=== PATIENT | male | born 1990 | race Caucasian/White ===

== ENCOUNTER 2019-08-07 02:47 | Observation (INO) | payer OTHER ==
[~2019-08-07] VITALS: Ht 177.8 cm; Wt 102.8 kg
[2019-08-07] VITALS (15 sets, daily range): BP systolic 100–135; BP diastolic 52–80; PULSE 57–101; TEMP 97.6–99.2
[2019-08-07] MEDS ORDERED: MOTRIN 800800 MG/TAB PO (04:00)
[2019-08-07] MEDS ORDERED: PRILOTC PO (04:04)
--- NOTE | 2019-08-07 04:28 | NUR ---
PT ARRIVED TO FLOOR FROM [facility] EM[facility]GENCY DEPT AT 0400. PT ARRIVED WITH [facility]IA [facility]. CURRENTLY PT IS RUNNING PANTOPRAZOLE 8ML/HR WITH 80ML LEFT IN A 100ML BAG. PT IS C/O PAIN IN THE UPPER ABDOMINAL REGION WITH BURNING IN THE ESOPHAGUS. PT STATES HE HAS COFFEE GROUND EMESIS AND BLOOD IN THE STOOL. UPON REPORT FROM [facility], PT HAD POSITIVE STOOL OCCULT. NO VOMITTING SINCE ARRIVAL TO THE HOSPITAL. PT TALKING AND EXPRESSIVE. PT STATES HE IS ANXIOUS REGARDING PROCEDURE. DR. ONEIL WILL BE PERFORMING EGD LATER THIS MORNING. PT ORIENTED TO THE ROOM, CALL LIGHT AND PERSONAL BELONGINGS WITHIN REACH. NO FURTHER CONCERNS AT THIS MOMENT.
[2019-08-07 07:08] LABS: BASO % 0.3 % (0.0-2.0); EOS # 0.1 (0.0-0.7); GRAN # 5.9 (1.4-6.5); GRAN % 77.2 % (42.2-75.2); HEMOGLOBIN 14.5 g/dl (13.5-18.0); LYMPH # 0.9 (1.2-3.4); LYMPH % 11.8 % (20.0-51.0); MEAN CELL VOLUME 85 fl (80.0-100.0); MEAN CORPUSCULAR HEMOGLOBIN 29 pg (27.0-31.0); MEAN CORPUSCULAR HGB CONC 34 g/dl (33.0-37.0); MEAN PLATELET VOLUME 11.4 fl (7.4-10.4); MONO # 0.7 (0.1-0.6); MONO % 8.9 % (1.7-9.3); PLATELET COUNT 185 K/mm3 (130-400); RED BLOOD COUNT 5.05 M/mm3 (4.20-5.60); REDCELL DISTRIBUTION WIDTH-CV 12.7 % (11.5-14.5)
--- NOTE | 2019-08-07 07:37 | NUR ---
Report given to MELANY Addison. No further concerns at this time.
--- NOTE | 2019-08-07 11:50 | NUR ---
Plan: Patient plans to return home with Keshia as care support. Assess: SW met with patient about DC plan. Patient reports that he resides on [address] [place]. Patient's pcp is Capt. Chavarria. Patient indicated that he obtains RX at [facility]. Patient denies DPOA. is set to transport. Patient denies the use of any DME. Patient denies having any care concerns. Action: It is unknown if additonal issues may arise, will follow up on additional services. Patient denies having any needs at this time. Educated on community supports.
[2019-08-07 18:04] LABS: HEMATOCRIT 40.3 % (42.0-52.0); HEMOGLOBIN 13.2 g/dl (13.5-18.0)
--- NOTE | 2019-08-07 19:00 | NUR ---
THIS NURSE TALKED TO PT TO SEE HOW HE FELT ABOUT GOING HOME THIS EVENING. STATED HE STILL FELT SICK AND HAD MORE ABD PAIN. GAVE ZOFRAN AND MORPHINE AT THIS TIME. STATED HE THOUGHT SINCE HE STILL FELT SICK THAT BE BETTER JUST STAY THE NIGHT TO GET TO FEELING BETTER BEFORE GOING HOME.
--- NOTE | 2019-08-07 20:00 | NUR ---
Pt is in bed. Has complaint of headache accompanied by N/V. Administered pain medication as well as an antiemetic. Pt should d/c from hospital 08/08. and children are now suffering from same virus at home.
[2019-08-08] VITALS: BP 100/58; PULSE 60; TEMP 97.9
[2019-08-08 03:02] VITALS: BP 100/58; PULSE 62; TEMP 97.9
--- NOTE | 2019-08-08 05:53 | NUR ---
PT SLEPT THROUGH THE NIGHT WITHOUT EMESIS. NAUSEA WAS HANDLED WITH A 1X IV DOSE OF PHENERGEN. PT FELT BETTER AND WAS ABLE TO GET REST. CALL LIGHT WITHIN REACH, BED IN LOCKED AND LOW POSITION. PLAN FOR PT IS TO BE D/C'D TODAY.
[2019-08-08 06:17] LABS: BASO % 0.2 % (0.0-2.0); EOS # 0.1 (0.0-0.7); GRAN # 2.7 (1.4-6.5); GRAN % 56.3 % (42.2-75.2); HEMATOCRIT 38.8 % (42.0-52.0); HEMOGLOBIN 12.8 g/dl (13.5-18.0); LYMPH # 1.3 (1.2-3.4); LYMPH % 28.1 % (20.0-51.0); MEAN CELL VOLUME 87 fl (80.0-100.0); MEAN CORPUSCULAR HEMOGLOBIN 29 pg (27.0-31.0); MEAN CORPUSCULAR HGB CONC 33 g/dl (33.0-37.0); MEAN PLATELET VOLUME 10.6 fl (7.4-10.4); MONO # 0.6 (0.1-0.6); MONO % 11.8 % (1.7-9.3); PLATELET COUNT 178 K/mm3 (130-400); RED BLOOD COUNT 4.48 M/mm3 (4.20-5.60); REDCELL DISTRIBUTION WIDTH-CV 12.7 % (11.5-14.5)
[2019-08-08 06:34] LABS: CALCIUM 8.6 mg/dL (8.4-10.2); CREATININE, serum 0.85 (0.66-1.25)
[2019-08-08 08:18] VITALS: BP 113/56; PULSE 65; TEMP 97.9
[2019-08-08] MEDS ORDERED: PROTONIX 40MG T40 MG PO (09:31)
--- NOTE | 2019-08-08 11:00 | NUR ---
PT WAS ABLE TO TOLLERATE BREAKFAST. DID HAVE C/O OF A PRESSURE PAIN AFTERWARDS. GAVE TYLENOL. NO FURTHER COMPLAINTS. WILL SEE HOW HE DOES A LUNCH
[2019-08-08 11:46] VITALS: BP 130/57; PULSE 69; TEMP 97.5
--- NOTE | 2019-08-08 14:00 | NUR ---
THIS NURSE ASKED PT HOW HE TOLERATED LUNCH. PT STATED NO ISSUES. FELT IF THOUGH HE WAS OK TO GO HOME. NO ISSUE NOTED.
--- NOTE | 2019-08-08 14:03 | NUR ---
First visit from the commercial leasing agent. No needs right now.
--- NOTE | 2019-08-08 14:03 | NUR ---
DC IV on left AC. IV cath intact. MELANY Addison by bedside and Radha, student nurse. Patient tolerated removal without pain.
--- NOTE | 2019-08-08 15:00 | NUR ---
DISCHARGE EDUCATION PROVIDED TO PT. NO FURTHER C/O ABD PAIN. ALL QUESITIONS ANSWERED. THIS NURSE WALKED PT KAY.
== END 2019-08-08 15:00 | disposition home or self-care (01) ==
LOC: MEDICAL 02:47
PROVIDERS: ADMIT Hospitalist
DX: K21.0 Gastro-esophageal reflux disease with esophagitis (principal); K92.1 Melena; R19.7 Diarrhea, unspecified; M19.071 Primary osteoarthritis, right ankle and foot; K44.9 Diaphragmatic hernia without obstruction or gangrene; K29.60 Other gastritis without bleeding
CPT/HCPCS: C9113; G0378; J2250; J2270; J2405; J2550; J3010; J7030

== ENCOUNTER 2019-10-24 07:15 | Day surgery (SDC) | payer OTHER ==
[~2019-10-24] VITALS: Ht 177.8 cm; Wt 103.0 kg
[2019-10-24] VITALS (7 sets, daily range): BP systolic 101–121; BP diastolic 68–75; PULSE 58–73; TEMP 97.5
[~2019-10-24 07:15] MED LIST: MOTRIN 800800 MG/TAB PO; PRILOTC PO; PROTONIX 40MG T40 MG PO
[2019-10-24] MEDS ORDERED: ZANTAC 150MG T150 MG PO (07:26)
--- NOTE | 2019-10-24 08:20 | NUR ---
Pt returns from endo procedure via cart. Pt ambulates from cart to recliner with RN assist. Monitors on and alarms set. Call light within reach. Friend present in room. Pt drowsy but answers questions appropriately. Pt denies pain or nausea. Pt requests apple juice and applesauce.
--- NOTE | 2019-10-24 08:30 | NUR ---
Pt remains drowsy, but answers all questions appropriately.
--- NOTE | 2019-10-24 08:40 | NUR ---
Pt taking food and drink well. Pt much more alert now. Pt has no complaints beyond a sore throat that was present pre-procedure.
--- NOTE | 2019-10-24 09:00 | NUR ---
Pt's arrives and remains in room.
--- NOTE | 2019-10-24 09:37 | NUR ---
Discharge instructions given to patient and . All questions answered to their satisfaction. Family asked multiple questions, and extra copies of instructions and pictures made for family to take to primary care physician.
--- NOTE | 2019-10-24 09:38 | NUR ---
Handed to patient and are a thank you card, discharge instructions, diagnosis information, procedural photos, and a patient health summary with medication continuation sheet.
--- NOTE | 2019-10-24 09:55 | NUR ---
Pt transferred out of hospital via wheelchair and this RN to private vehicle driven by .
== END 2019-10-24 09:55 | disposition home or self-care (01) ==
LOC: SDCO 07:15
DX: K21.0 Gastro-esophageal reflux disease with esophagitis (principal); K44.9 Diaphragmatic hernia without obstruction or gangrene; Z87.891 Personal history of nicotine dependence
CPT/HCPCS: J2704; J7030

== ENCOUNTER 2019-11-11 12:25 | Emergency (ER) | payer OTHER ==
[~2019-11-11] VITALS: Ht 177.8 cm; Wt 101.8 kg
[~2019-11-11 12:25] MED LIST changes: +ZANTAC 150MG T150 MG PO
[2019-11-11] MEDS ORDERED: LIORESAL 1010 MG/TAB PO (12:30)
[2019-11-11 13:04] LABS: BASO % 0.3 % (0.0-2.0); EOS # 0.1 (0.0-0.7); GRAN # 5.4 (1.4-6.5); GRAN % 67.4 % (42.2-75.2); HEMATOCRIT 46.1 % (42.0-52.0); HEMOGLOBIN 15.6 g/dl (13.5-18.0); LYMPH % 24.6 % (20.0-51.0); MEAN CELL VOLUME 83 fl (80.0-100.0); MEAN CORPUSCULAR HEMOGLOBIN 28 pg (27.0-31.0); MEAN CORPUSCULAR HGB CONC 34 g/dl (33.0-37.0); MEAN PLATELET VOLUME 10.9 fl (7.4-10.4); MONO # 0.5 (0.1-0.6); MONO % 6.4 % (1.7-9.3); PLATELET COUNT 241 K/mm3 (130-400); RED BLOOD COUNT 5.59 M/mm3 (4.20-5.60); REDCELL DISTRIBUTION WIDTH-CV 12.5 % (11.5-14.5)
[2019-11-11 13:17] LABS: ALANINE AMINOTRANSFERASE 22 U/L (21-72); ALBUMIN 4.9 gm/dL (3.5-5.0); ALKALINE PHOSPHATASE 61 U/L (50-136); ANION GAP 13 mmol/L (7-16); AST,SGOT 27 U/L (15-37); BILIRUBIN,TOTAL 1.4 mg/dL (0.0-1.0); BLOOD UREA NITROGEN 14 mg/dL (9-20); CALCIUM 10.3 mg/dL (8.4-10.2); CARBON DIOXIDE 21 mmol/L (22-30); CHLORIDE 106 mmol/L (98-107); CREATININE, serum 0.89 (0.66-1.25); GLUCOSE 139 mg/dL (74-106); LIPASE 87 U/L (23-300); POTASSIUM 3.8 mmol/L (3.4-5.0); SODIUM 140 mmol/L (137-145)
[2019-11-11 13:18] LABS: C-REACTIVE PROTEIN < 0.5 mg/dL (0.0-0.9)
[2019-11-11 16:00] VITALS: BP 101/73; PULSE 53; TEMP 97.6
[2019-11-11 16:15] LABS: COLLECTION METHOD CLEAN CATCH
[2019-11-11 16:25] LABS: MUCOUS Present /lpf; PH 6 (5-8); SQUAMOUS EPITHELIAL 0-2 /hpf; URINE APPEARANCE Clear; URINE BACTERIA None Seen /hpf; URINE BILIRUBIN Negative (NEGATIVE); URINE BLOOD Negative (NEGATIVE); URINE COLOR Yellow; URINE GLUCOSE Negative (NEGATIVE); URINE KETONE Trace (NEGATIVE); URINE LEUKOCYTE ESTERASE Negative (NEGATIVE); URINE NITRATE Negative (NEGATIVE); URINE PROTEIN(semi-quant) Negative (NEGATIVE); URINE RBC 0-2 /hpf; URINE UROBILINOGEN Negative (NEGATIVE)
[2019-11-11] MEDS ORDERED: PHENERGAN 25 TA25 MG PO (16:31)
== END 2019-11-11 17:01 | disposition home or self-care (01) ==
LOC: COL.ER 12:25
PROVIDERS: Family Medicine
DX: R11.2 Nausea with vomiting, unspecified (principal); R10.10 Upper abdominal pain, unspecified
CPT/HCPCS: J1200; J1630; J2405; J2550; J7030

== ENCOUNTER → 2019-11-17 | Outpatient (CLI) | payer OTHER ==
[~2019-11-17] MED LIST changes: +LIORESAL 1010 MG/TAB PO; +PHENERGAN 25 TA25 MG PO
== END ==
LOC: COL.RAD 07:14
DX: R14.0 Abdominal distension (gaseous) (principal); R11.10 Vomiting, unspecified; R14.2 Eructation
CPT/HCPCS: A9541

== ENCOUNTER 2020-02-01 10:40 | Day surgery (SDC) | payer OTHER ==
[2020-02-01] VITALS (11 sets, daily range): BP systolic 111–129; BP diastolic 61–91; PULSE 80–98; TEMP 97.5–98.2
[~2020-02-01] VITALS: Ht 177.8 cm; Wt 107.5 kg
[2020-02-01] MEDS ORDERED: PEPCID 20MG TAB20 MG PO (11:38)
--- NOTE | 2020-02-01 14:40 | NUR ---
Patient up from OR. Drowsy but arouses to voice. Lap sites x 6 with bandaids are CDI. Post op VSS. Post op fluids infusing per orders. Will continue to monitor.
--- NOTE | 2020-02-01 17:26 | NUR ---
Patient called out to nurses station requestion pain medications. Patient sleeping upon entering room
--- NOTE | 2020-02-01 19:13 | NUR ---
Patient has done well this afternoon. Sitting up in recliner. Encouraged patient to increase ambulation for gas pain. Tolerating diet without difficulties. Denies further needs at this time. Reported off to mine shifter.
--- NOTE | 2020-02-01 20:00 | NUR ---
Received report from MELAYN Cuellar. Pt was sitting up in the chair and had his call light within reach.
--- NOTE | 2020-02-02 | NUR ---
Pt started out the shift with quite a bit of pain. Pt requested pain medication and was given [place] once Dilaudid. Pt ambulated down the morgan way to the nurse station. pt stated that this felt better. Pt lungs sounds were clear, and heart sounds were normal S1 and S2 sounds. Pt lap sites were all clean dry and intact with bandaids. Pt fluids were INT because pt has been taking fluids ok. Pt is currently resting in bed with his call light within reach.
[2020-02-02 03:40] VITALS: BP 109/53; PULSE 85; TEMP 98.1
--- NOTE | 2020-02-02 06:08 | NUR ---
Pt is currently lying in bed. Pt was asked if he needed something for pain at this time. Pt stated that he was ok for now and would call out if he needed something for pain. Pt call light is within reach.
--- NOTE | 2020-02-02 07:16 | NUR ---
Reported of to MELANY Aguilar
--- NOTE | 2020-02-02 07:30 | NUR ---
Patient called and reported 10/10 pain in his abdomen. Patient request IV dilaudid, administered PO norco per order and explained to patient that dilaudid was ordered for breakthrough pain. Patient also requested PRN zofran, but later reported that he did not have any nausea. Encouraged patient to ambulate in hallways to relieve gas pain, patient states that he is in too much pain to walk at the moment. Patient denies further needs, call light within reach.
[2020-02-02 08:43] VITALS: BP 106/60; PULSE 78; TEMP 97.4
--- NOTE | 2020-02-02 09:30 | NUR ---
Patient requested PRN dilaudid again, states that PO pain medication did not lessen his pain at all. administered PRN dilaudid per order. Patient reported immediate relief of pain. Patient denies further needs at this time, call light within reach.
--- NOTE | 2020-02-02 11:03 | NUR ---
First visit from the security services specialist. No needs right now.
[2020-02-02 12:46] VITALS: BP 111/58; PULSE 80; TEMP 97.3
--- NOTE | 2020-02-02 14:37 | NUR ---
YOLANDE met with the patient to complete initial intake. 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 The patient's PCP is CAPT Hogan and patient receives medications on [address]. The patient denies DME use and is independent with ADLs. The patient does not have advanced directives the EMR. The patient plans to return home at discharge with his providing transportation. There are no additional needs at this time.
[2020-02-02 16:56] VITALS: BP 129/74; PULSE 87; TEMP 97.7
[2020-02-02] MEDS ORDERED: NORCO 325 MG-51 TAB PO (17:03)
[2020-02-02] MEDS ORDERED: ZOFRAN 4MG T4 MG/TAB PO (17:04)
--- NOTE | 2020-02-02 18:21 | NUR ---
Discharge teaching completed. Patient verbalized understanding and denied questions or needs. INT removed, catheter intact, hemostasis achieved. Patient awaiting arrival of his to take him home, will escort out when she arrives.
== END 2020-02-02 18:34 | disposition home or self-care (01) ==
LOC: SDCO 10:40 → SURG 14:43 → SDCO 02-02 18:34
DX: K21.9 Gastro-esophageal reflux disease without esophagitis (principal); K44.9 Diaphragmatic hernia without obstruction or gangrene; Z79.899 Other long term (current) drug therapy
CPT/HCPCS: OP; A9284; J1100; J1170; J1885; J2250; J2405; J2550; J2704; J3010; J7120